=== PATIENT | male | born 1990 ===

== ENCOUNTER 2016-11-11 14:47 | Emergency (ER) | payer BC ==
[2016-11-11 15:03] VITALS: BP 125/71
--- NOTE | 2016-11-11 15:34 | UC ---
Palpitation/Dysrhythmia HP - HPI Summary HPI Summary: The patient comes in today for: 1. Palpitations: Onset: Over the last year, he noticed this. Palliative/provocative: Quality: Palpitations. Region: Chest Severity: 0/10 Time: Comes and goes. Associated symptoms: Event: About 1 year ago, he states that he would notice that one beat would be missed. At that time, he would feel like he needed only to take a deep breath and everything would be OK. But, he noticed a change this last Wednesday ( 5 days ago). He states that the rate would be fast and regular. He can't say that there is any skipping beats. He called his regular physician and he states that he is not able to get in until the 10 of December. These episodes last about a "few minutes to a few hours." And he noticed that this can occur when he is just sitting around the home. No lightheadedness. No dsypnea, no chest pain. He states that this unusual rhythm is "just noticeable" and nothing else--no other symptoms. Previous heart disease: None. Previous treatment: None. 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 He was bit by a tick about a month ago. It was on the arm. He states that it was on there for no more than a hour. [id number] preparations (No chew tobacco, no energy drinks, no supplements, no herbal preparations, or decongestants). Coffee: 1 cup in the AM. Thyroid disease: None. * - History of Current Complaint Chief Complaint: UCGeneralIllness Stated Complaint: RAPID HEARTBEAT Time Seen by Provider: 11/11/16 15:07 Hx Obtained From: Patient - Allergy/Home Medications Allergies/Adverse Reactions: Allergies Allergy/AdvReac Type Severity Reaction Status Date / Time No Known Allergies Allergy Verified 11/11/16 15:02 Home Medications: Home Medications NK [No Home Medications Reported] 11/11/16 [History Confirmed 11/11/16] PMH/Surg Hx/FS Hx/Imm Hx Previously Healthy: No - No DM, HTN, heart disease, thyroid disease, cardiac. Endocrine History: Diabetes Other History Of: Negative For: HIV, Hepatitis B, Hepatitis C - Surgical History Surgical History: None - Family History Known Family History: Positive: Cardiac Disease - Mother side--"no good hearts. " - Social History Occupation: Employed Full-time Alcohol Use: Occasionally Substance Use Type: None Smoking Status (MU): Never Smoked Tobacco Review of Systems Constitutional: Negative Skin: Negative Eyes: Negative ENT: Negative Respiratory: Negative Cardiovascular: Negative Gastrointestinal: Negative Genitourinary: Negative All Other Systems Reviewed And Are Negative: Yes Physical Exam Triage Information Reviewed: Yes Appearance: Well-Appearing, No Pain Distress, Well-Nourished Vital Signs: Initial Vital Signs Temp 98.8 F 11/11/16 14:57 Pulse 82 11/11/16 14:57 Resp 16 11/11/16 14:57 BP 125/71 11/11/16 14:57 Pulse Ox 100 11/11/16 14:57 Vital Signs Reviewed: Yes Eyes: Positive: Conjunctiva Clear. Negative: Discharge ENT: Positive: Hearing grossly normal. Negative: Pharyngeal erythema, Nasal congestion, Nasal drainage, TM bulging, TM dull, TM red, Tonsillar swelling, Tonsillar exudate Dental: Negative: Gross Decay/Caries @, Dental Fracture @ Neck: Positive: Supple, Nontender, No Lymphadenopathy, Other: - No thyromegally or nodularity or tenderness. Respiratory: Positive: Chest non-tender, Lungs clear, No respiratory distress, No accessory muscle use. Negative: Rhonchi, Wheezing Cardiovascular: Positive: RRR, No Murmur, Pulses Normal - Dorsalis pedis, posterior tibialis, radial, carotids Abdomen Description: Positive: Nontender, No Organomegaly, Soft. Negative: Distended, Guarding Musculoskeletal: Positive: Strength Intact, ROM Intact, No Edema Neurological: Positive: Alert, Muscle Tone Normal Psychological: Positive: Age Appropriate Behavior, Consolable Skin: Negative: rashes, breakdown Diagnostics - Laboratory Diagnostic Studies Completed/Ordered: EKG: Rate: 74. Rhythm: sinus. Ectopy: None. Acute changes: None Palpitations Course/Dx - Course Course Of Treatment: Patient was told that his clincal heart exam was normal and to further evaluation his palpitations he gets at rest, he was encouraged to see cardiology. - Differential Dx/Diagnosis Provider Diagnoses: Palpitations Discharge - Discharge Plan Condition: Stable Disposition: HOME Patient Education Materials: Palpitations (ED) Referrals: Lorena Rhoades MD [Medical Doctor] - As Soon As Possible (Please contact Dr. Rhoades's office as soon as you can for an appointment for palpitations. If you get worse, please go to the ER. Please keep a diary as discussed between now and the time you are seen by the engraver block.)
== END 2016-11-11 16:18 | disposition home or self-care (01) ==
LOC: UCCORT 14:47
DX: R00.2 Palpitations (principal)
CPT/HCPCS: 93005; 99201; G0463